=== PATIENT | male | born 2000 | race Two or more races ===

== ENCOUNTER 2024-03-26 19:35 | Emergency (ER) | payer MEDICAID, SELFPAY ==
[2024-03-26 19:36] VITALS: BMI 28.3
[2024-03-26 20:19] VITALS: BP 146/92; PULSE 97; RESP 18; TEMP 37; O2SAT 100
--- NOTE | 2024-03-26 20:26 | XR_ITS ---
Examination: PA lateral chest 2 views Technique: Upright PA lateral chest 2 views Exam date and time: March 26, 20242054 hrs. Comparison October 06, 2020 Indications: Dizziness diaphoresis night sweats chest pain beginning 3 days ago. Findings: Normal heart size No pneumonia or pulmonary edema The osseous structures are intact Impression: No active disease
--- NOTE | 2024-03-26 20:26 | XR_ITS ---
Examination: CT brain head without contrast. 2-D sagittal coronal reconstructions Date and time of exam:March 26, 2024 2038 hrs. Comparison April 15, 2016 Indications: Dizziness nausea cardiac palpitations and diaphoresis beginning 3 days ago CTDI: vol (mGy):49.8 DLP: (mGycm):991 Technique: Multiple CT axial sections of the brain have been obtained, 5 mm slice thickness. Contrast has not been administered. 2-D sagittal, coronal reconstructions have been obtained Low dose protocols were performed. One or more of the following dose reduction techniques were used; automated exposure control, adjustment of the mA and/or KV according to patient size, use of iterative reconstruction technique. Findings: No significant ventricular enlargement. Intra-axial or extra-axial hemorrhage density is not seen. No mass effect or midline shift Basal cisterns are not remarkable. Fourth ventricle is midline. Cranial vault intact. Impression: Negative for acute hemorrhage, mass effect or midline shift
--- NOTE | 2024-03-26 20:26 | EKG_ITS ---
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
--- NOTE | 2024-03-26 20:27 | EDNOTE_ITS ---
ED Dizzyness RME/HPI General Chief Complaint: Dizziness Stated Complaint: DIZZINESS, HEART PALPITATIONS Time Seen by Provider: 03/26/24 20:16 Source: patient Arrival date/time: 03/26/24 19:35 23-year-old male no significant past medical history other than daily marijuana smoker presents emergency department complaining of dizziness and elevated heart rate above 100. Mode of arrival: ambulatory Limitations: no limitations Related Data Home Medications ?Medication ?Instructions ?Recorded ?Confirmed No Known Home Medications 09/22/23 09/22/23 Allergies Allergy/AdvReac Type Severity Reaction Status Date / Time No Known Allergies Allergy Verified 03/26/24 19:38 Review of Systems Review of Systems Systems Reviewed: All systems reviewed, normal except as documented Constitutional Constitutional: Reports system reviewed and no additional complaints, except as documented, Denies body ache(s), Denies chills and Denies fever(s) Eyes Eyes: Reports system reviewed and no additional complaints, except as documented and Denies change in vision ENT Ears, Nose, Mouth, and Throat: Reports system reviewed and no additional complaints, except as documented, Denies disequilibrium, Denies dizziness, Denies sore throat and Reports vertigo Cardiovascular Cardiovascular: Reports system reviewed and no additional complaints, except as documented, Denies chest pain, Denies dyspnea and Reports palpitations Respiratory Respiratory: Reports system reviewed and no additional complaints, except as documented, Denies chest congestion, Denies cough and Denies dyspnea Gastrointestinal Gastrointestinal: Reports system reviewed and no additional complaints, except as documented, Denies abdominal pain, Denies nausea and Denies vomiting Musculoskeletal Musculoskeletal: Reports system reviewed and no additional complaints, except as documented, Denies abnormal gait and Denies arthralgias Integumentary/Breasts Skin/Breast: Reports system reviewed and no additional complaints, except as documented, Denies erythema, Denies rash and Denies wounds Neurologic Neurologic: Reports system reviewed and no additional complaints, except as documented, Denies abnormal gait, Denies disequilibrium, Denies dizziness and Reports vertigo Endocrine Endocrine: Reports palpitations Past Medical History Social History SMOKING STATUS: Current every day smoker ED Exam General Limitations: Present no limitations General appearance: Present alert and in no apparent distress Head Head exam: Present atraumatic Eye Eye exam: Present normal appearance, PERRL and EOMI ENT ENT exam: Present normal exam, normal oropharynx and mucous membranes moist Neck Neck exam: Present normal inspection, full ROM and trachea midline Chest Chest inspection: Present normal inspection and symmetric chest wall rise Respiratory Respiratory exam: Present normal lung sounds bilaterally Cardiovascular Cardiovascular exam: Present regular rate, normal rhythm and normal heart sounds Abdominal Exam Abdominal exam: Present soft and normal bowel sounds Extremities Exam Extremities exam: Present normal inspection and full ROM Back Exam Back exam: Present normal inspection and full ROM Neurological Exam Neurological exam: Present alert, oriented X3 and CN II-XII intact Psychiatric Psychiatric exam: Present normal affect and normal mood Skin Skin exam: Present warm, dry, intact and normal color Course Quality Measures none Orders Category Date Time Status Bedside COVID-19 Antigen Test NOW Care 03/26/24 20:26 Completed Bedside Influenza A&B Antigen Test NOW Care 03/26/24 20:26 Completed EKG (ED ONLY) *Do not use* NOW Care 03/26/24 20:[address] head/brain wo con Stat Exams 03/26/24 20:26 Completed EKG (ED Only) Stat Exams 03/26/24 20:26 Draft XR chest 2V Stat Exams 03/26/24 20:26 Completed Drug Screen,Urine Stat Lab 03/26/24 20:53 Completed Acetaminophen Tab [Tylenol ES Tab] Med 03/26/24 20:27 Discontinued 1,000 mg PO X1 ONE Metoclopramide [Reglan] Med 03/26/24 20:27 Discontinued 10 mg PO X1 ONE Vital Signs Vital signs: Vital Signs Temperature 98.6 F 03/26/24 20:19 Pulse Rate 97 03/26/24 20:19 Respiratory Rate 18 03/26/24 20:19 Blood Pressure 146/92 H 03/26/24 20:19 Pulse Oximetry (%) 100 03/26/24 20:19 Oxygen Delivery Method Room Air 03/26/24 20:19 100% room air within normal limits Procedures -ED EKG Interpretation #1: Date of EK03/26/24 Time of EK:34 Rate: 101 Interpretation: Interpreted by me EKG Impression: No acute ST-T changes, No ectopy, No ischemic changes, Sinus tachycardia and Normal QRS Dizziness MDM Narrative MDM Narrative:: 23-year-old male no significant past medical history other than daily marijuana smoker presents emergency department complaining of dizziness and elevated heart rate above 100. Patient [place] any fever, chills, cough, shortness of breath, nausea vomiting, diarrhea, or any other associated symptom. CT head was unremarkable. EKG sinus tach. Toxicology was positive for THC. COVID and influenza swabs negative. Patient appears nontoxic and is hemodynamically stable. Patient discharged instructed to follow-up with primary care provider and return to emergency department for any worsening symptoms or as needed. Patient data External records reviewed:: [facility] previous records Clinical information provided by:: patient Social determinants that could affect healthcare access:: none Patient has the following chronic illnesses:: N/A How is presenting disease/condition affected by chronic disease/condition?: no chronic disease Evaluation data The following diagnostics were reviewed and interpreted by me:: lab results, radiology exam(s) and EKG tracing(s) Lab and/or radiology exams considered but not ordered:: Ordered Interpretation Summary: Interpreted by me Medications / Prescriptions Medications or Prescriptions considered but not ordered:: Ordered Medication administrations:: Medication Administration History Discontinued Medications Acetaminophen (Acetaminophen 500 Mg Tablet) 1,000 mg PO X1 ONE Stop: 03/26/24 20:28 Last Admin: 03/26/24 20:35 Dose: Not Given Documented By: OA Non-Admin Reason: Patient Refused Metoclopramide HCl (Metoclopramide 5 Mg Tablet) 10 mg PO X1 ONE Stop: 03/26/24 20:28 Last Admin: 03/26/24 20:35 Dose: Not Given Documented By: OA Non-Admin Reason: Patient Refused Refused Consultations Consultation(s) initiated? (list below): No Diagnosis Dizziness Differential Diagnosis: benign paroxysmal positional vertigo and orthostatic hypotension Most likely diagnosis given after review of the tests above:: Marijuana use Admission Indicated Admission indicated?: not indicated Admission Request Was there a request for admission?: No Disposition Plan Disposition Plan: Discharge Discharge Attestation Discharge Attestation: The patient and all family members were given an opportunity to ask questions and understood the discharge instructions. Discharge instructions specifically effects, indications for sooner follow up or return to the emergency department, and the expected course of current diagnosis. Patient condition: Stable Discharge Plan Plan Patient Disposition: HOME (Self Care) Disposition Comment: Stable Prescriptions/Referrals Prescriptions/Med Rec: No Action No Known Home Medications Problem List Clinical Impression: Marijuana use Patient/Caregiver Discharge Instructions Discharge Activity: activity as tolerated Education Materials: Substance Abuse and Traumatic ... Additional Instructions: Drink plenty of fluids and stay hydrated. Follow-up with primary care provider in 2 to 3 days. Return to emergency department for any worsening symptoms or as needed. Print Language: Yoruba Stand Alone Forms: Jossie Award Info., Patient Portal Info Letter PA/CONSULTING BUSINESS DEVELOPER Supervising Physician PA/CONSULTING BUSINESS DEVELOPER Supervising Physician: Dr. Porter
[2024-03-26 22:32] LABS: Amphetamine/Methamp Scrn,U Negative (Negative); Barbiturate Screen,Urine Negative (Negative); Benzodiazepines Screen,Urine Negative (Negative); Benzoylecgonine Screen, Ur Negative (Negative); Fentanyl Screen,Urine Negative (Negative); Opiate Screen,Urine Negative (Negative); THC Screen,Urine Positive (Negative)
== END 2024-03-26 22:45 | disposition home or self-care (01) ==
PROVIDERS: Emergency Provider Emergency Medicine; PCP Family Medicine
DX: F12.90 Cannabis use, unspecified, uncomplicated (principal); R42 Dizziness and giddiness; R11.0 Nausea; R00.2 Palpitations; R61 Generalized hyperhidrosis; R07.9 Chest pain, unspecified; R00.0 Tachycardia, unspecified
CPT/HCPCS: 70450; 71046; 80307; 87400; 87811; 93005; 99284

== ENCOUNTER 2024-10-07 09:48 | Emergency (ER) | payer MEDICAID, SELFPAY ==
[2024-10-07 09:48] VITALS: BMI 30.3
[2024-10-07 09:52] VITALS: BP 137/88; PULSE 90; RESP 18; TEMP 36.9; O2SAT 96
--- NOTE | 2024-10-07 10:26 | EDNOTE_ITS ---
ED Headache RME/HPI General Chief Complaint: Headache Stated Complaint: HEADACHE Time Seen by Provider: 10/07/24 09:50 Arrival date/time: 10/07/24 09:48 This is a 24-year-old male that comes into the emergency room with complaints of headache for the past few days. Patient states that he did have abdominal pain a couple days ago but that went away. Patient states the pain in his head is usually the back of his head. Patient denies any nausea vomiting. Related Data Previous Rx's ?Medication ?Instructions ?Recorded ibuprofen 800 mg tablet 800 mg PO Q6H PRN pain #14 t abs 10/07/24 metoclopramide HCl 10 mg tablet 10 mg PO Q6H PRN nause a and 10/07/24 (Reglan) vomiting #14 tabs Allergies Allergy/AdvReac Type Severity Reaction Status Date / Time No Known Allergies Allergy Verified 10/07/24 09:49 Review of Systems Review of Systems Systems Reviewed: All systems reviewed, normal except as documented Past Medical History Social History SMOKING STATUS: Current every day smoker ED Exam Narrative Physical exam: VITAL SIGNS: Reviewed. GENERAL APPEARANCE: Alert and interactive, follows commands, no acute distress, HEAD AND FACE: Non-traumatic. ENT: PERRL, conjuctiva pink and clear, eyelid no trauma, Mucous membrane moist. NECK: Supple, nontender, no nuchal rigidity. CHEST: No tenderness, no crepitus, no paradoxical movement, no retractions. LUNGS: Clear, well ventilated, symmetric, no rales, no wheezing, no rhonchi, no stridor, good breath sounds bilaterally. HEART: Regular rate, regular rhythm ABDOMEN: Soft, nondistended, no guarding, nontender NEUROLOGICAL: Gross motor function intact sensory function intact, Appropriate for age. MUSCULOSKELETAL: low back nontender, full range of motion. EXTREMITIES: No redness no swelling no skin breakdown on bilateral foot and leg. Distal neurovascular status intact bilateral foot SKIN: Color pink, dry, no rash, no lacerations, no abrasions, no contusions. Course Quality Measures none Orders Category Date Time Status DiphenhydrAMINE INJ [Benadryl Inj] Med 10/07/24 10:24 Discontinued 25 mg IM X1 ONE DiphenhydrAMINE [Benadryl] Med 10/07/24 10:57 Discontinued 25 mg PO X1 ONE Ibuprofen Tab [Motrin Tab] Med 10/07/24 10:57 Discontinued 800 mg PO X1 ONE Ketorolac Inj [Toradol Inj] Med 10/07/24 10:24 Discontinued 60 mg IM X1 ONE Metoclopramide Inj [Reglan Inj] Med 10/07/24 10:24 Discontinued 10 mg IM X1 ONE Metoclopramide [Reglan] Med 10/07/24 10:57 Discontinued 10 mg PO X1 ONE Vital Signs Vital signs: Vital Signs Temperature 98.5 F 10/07/24 09:52 Pulse Rate 90 10/07/24 09:52 Respiratory Rate 18 10/07/24 09:52 Blood Pressure 137/88 H 10/07/24 09:52 Pulse Oximetry (%) 96 10/07/24 09:52 Oxygen Delivery Method Room Air 10/07/24 09:52 Headache MDM Narrative MDM Narrative:: Patient given ibuprofen, Benadryl, and Reglan. Patient feels better. Will send patient home with ibuprofen and Reglan. Patient told to follow-up with primary provider in 1 to 2 days. Come back to the emergency room symptoms change or worsen Patient data External records reviewed:: [facility] previous records Clinical information provided by:: patient Social determinants that could affect healthcare access:: none Patient has the following chronic illnesses:: none How is presenting disease/condition affected by chronic disease/condition?: no chronic disease Evaluation data The following diagnostics were reviewed and interpreted by me:: other (specify) (none ) Lab and/or radiology exams considered but not ordered:: none Interpretation Summary: see note Medications / Prescriptions Medications or Prescriptions considered but not ordered:: none Medication administrations:: Medication Administration History Discontinued Medications Diphenhydramine HCl (Diphenhydramine Inj 50 Mg/Ml Vial) 25 mg IM X1 ONE Stop: 10/07/24 10:25 Last Admin: 10/07/24 11:02 Dose: Not Given Documented By: DWIGHT Non-Admin Reason: Patient Refused Diphenhydramine HCl (Diphenhydramine 25 Mg Capsule) 25 mg PO X1 ONE Stop: 10/07/24 10:58 Last Admin: 10/07/24 11:02 Dose: 25 mg Documented By: DWIGHT Ibuprofen (Ibuprofen Tab 400 Mg Tablet) 800 mg PO X1 ONE Stop: 10/07/24 10:58 Last Admin: 10/07/24 11:02 Dose: 800 mg Documented By: DWIGHT Ketorolac Tromethamine (Ketorolac Inj 60 Mg/2 Ml Vial) 60 mg IM X1 ONE Stop: 10/07/24 10:25 Last Admin: 10/07/24 11:02 Dose: Not Given Documented By: DWIGHT Non-Admin Reason: Patient Refused Metoclopramide HCl (Metoclopramide Inj 5 Mg/Ml Vial 2 Ml) 10 mg IM X1 ONE; Protocol Stop: 10/07/24 10:25 Last Admin: 10/07/24 11:02 Dose: Not Given Documented By: DWIGHT Non-Admin Reason: Patient Refused Metoclopramide HCl (Metoclopramide 5 Mg Tablet) 10 mg PO X1 ONE Stop: 10/07/24 10:58 Last Admin: 10/07/24 11:02 Dose: 10 mg Documented By: DWIGHT [facility] Consultations Consultation(s) initiated? (list below): No Diagnosis Differential diagnosis headache: migraine, tension headache, headache and sinusitis Most likely diagnosis given after review of the tests above:: headache Admission Indicated Admission indicated?: not indicated Admission Request Was there a request for admission?: No Disposition Plan Disposition Plan: Discharge Discharge Attestation Discharge Attestation: The patient and all family members were given an opportunity to ask questions and understood the discharge instructions. Discharge instructions specifically effects, indications for sooner follow up or return to the emergency department, and the expected course of current diagnosis. Patient condition: Stable Discharge Plan Plan Patient Disposition: HOME (Self Care) Patient condition on transfer: Stable Prescriptions/Referrals Prescriptions/Med Rec: New ibuprofen 800 mg tablet 800 mg PO Q6H PRN (Reason: pain) Qty: 14 0RF metoclopramide HCl [Reglan] 10 mg tablet 10 mg PO Q6H PRN (Reason: nausea and vomiting) Qty: 14 0RF Referrals: No Primary/Family,Physician [Primary Care Provider] - In 1 week Problem List Clinical Impression: Headache Patient/Caregiver Discharge Instructions Discharge Activity: activity as tolerated Education Materials: Self-Care for Headaches Additional Instructions: Follow up with primary provider in 1-2 days. Come back to ED if symptoms change or worsen Print Language: Wallisian Stand Alone Forms: Jossie Award Info., Patient Portal Info Letter PA/LUIS A Supervising Physician MARVIN/LUIS A Supervising Physician: diamond
[2024-10-07] MEDS: IBUPROFEN TAB 400 MG TABLET 800 MG PO (11:02)
[2024-10-07] MEDS: METOCLOPRAMIDE 5 MG TABLET 10 MG PO (11:02)
[2024-10-07] MEDS: DiphenhydrAMINE 25 MG CAPSULE PO (11:02)
== END 2024-10-07 12:20 | disposition home or self-care (01) ==
PROVIDERS: Emergency Provider Family Medicine
DX: R51.9 Headache, unspecified (principal)
CPT/HCPCS: 99282; A9270